=== PATIENT | male | born 1980 | race Caucasian/White ===

== ENCOUNTER → 2016-11-06 | Outpatient (CLI) | payer OTHER ==
--- NOTE | 2016-11-06 17:10 | DIAGNOSTIC IMAGING REPORT ---
LEFT HIP UNILATERAL 2 VIEWS, RIGHT HIP UNILATERAL 2 VIEWS CLINICAL HISTORY: M25.551 Pain of both hip [id number] COMPARISON STUDY: None. FINDINGS: No fracture or dislocation within the right or left hips. Cartilage spaces within the bilateral hips are maintained. Soft tissues are unremarkable. There is mild erosive change and sclerosis within the bilateral sacroiliac joints. The sacrum is intact. IMPRESSION: 1. Normal bilateral hips. 2. Slight erosive change and sclerosis within the bilateral sacroiliac joints consistent with a bilateral sacroiliitis. This can be seen in the setting of inflammatory bowel disease or less likely psoriasis. Electronically signed by: Shar Raymond M.D. 11/06/2016 5:09 PM Dictated Date/Time: 11/06/2016 5:06 PM
--- NOTE | 2016-11-06 17:10 | DIAGNOSTIC IMAGING REPORT ---
LEFT HIP UNILATERAL 2 VIEWS, RIGHT HIP UNILATERAL 2 VIEWS CLINICAL HISTORY: M25.551 Pain of both hip [id number] COMPARISON STUDY: None. FINDINGS: No fracture or dislocation within the right or left hips. Cartilage spaces within the bilateral hips are maintained. Soft tissues are unremarkable. There is mild erosive change and sclerosis within the bilateral sacroiliac joints. The sacrum is intact. IMPRESSION: 1. Normal bilateral hips. 2. Slight erosive change and sclerosis within the bilateral sacroiliac joints consistent with a bilateral sacroiliitis. This can be seen in the setting of inflammatory bowel disease or less likely psoriasis. Electronically signed by: Shar Raymond M.D. 11/06/2016 5:09 PM Dictated Date/Time: 11/06/2016 5:06 PM
--- NOTE | 2016-11-06 17:13 | DIAGNOSTIC IMAGING REPORT ---
THORACIC SPINE 3 VIEWS HISTORY: M54.6 Thoracic back [id number] COMPARISON: None. FINDINGS: There is no fracture. No subluxation. Disc spaces are preserved. Paraspinal soft tissues are unremarkable. IMPRESSION: Unremarkable thoracic spine by conventional radiographic technique. Electronically signed by: Shar Raymond M.D. 11/06/2016 5:11 PM Dictated Date/Time: 11/06/2016 5:10 PM
--- NOTE | 2016-11-06 17:14 | DIAGNOSTIC IMAGING REPORT ---
LUMBAR SPINE 5 VIEWS HISTORY: M54.5 Low back [id number] COMPARISON: None. FINDINGS: There is no fracture. No subluxation. Disc spaces are preserved. Mild erosive change and sclerosis within the bilateral sacroiliac joints. The sacrum appears intact. Alignment remains intact through both flexion and extension. IMPRESSION: Unremarkable lumbar spine by conventional measurement radiographic technique. Suspect bilateral sacroiliitis. Electronically signed by: Shar Raymond M.D. 11/06/2016 5:13 PM Dictated Date/Time: 11/06/2016 5:12 PM
== END | disposition home or self-care (01) ==
LOC: C.RAD1850 16:31
PROVIDERS: ATTEND Internal Medicine
DX: M25.551 Pain in right hip (principal); M25.552 Pain in left hip; M54.6 Pain in thoracic spine; M54.5 Low back pain; M53.3 Sacrococcygeal disorders, not elsewhere classified

== ENCOUNTER → 2016-11-07 | Outpatient (CLI) | payer OTHER ==
[2016-11-07 13:38] LABS: HEMATOCRIT 41.6 % (42-52); MEAN CELL VOLUME 87.8 fL (80-100); MEAN CORPUSCULAR HEMOGLOBIN 30.8 pg (25-34); MEAN CORPUSCULAR HGB CONC 35.1 g/dl (32-36); MEAN PLATELET VOLUME 9.3 fL (7.4-10.4); PLATELET COUNT 343 K/uL (130-400); RED BLOOD COUNT 4.74 M/uL (4.7-6.1); WHITE BLOOD COUNT 8.88 K/uL (4.8-10.8)
[2016-11-07 14:02] LABS: ALT/SGPT 25 U/L (12-78); BLOOD UREA NITROGEN 16 mg/dl (7-18); BUN/CREATININE RATIO 18.3 (10-20); CARBON DIOXIDE 26 mmol/L (21-32); CHLORIDE 106 mmol/L (98-107); CREATININE 0.89 mg/dl (0.60-1.40); GLUCOSE 80 mg/dl (70-99); POTASSIUM 3.9 mmol/L (3.5-5.1); SODIUM 139 mmol/L (136-145); URIC ACID 4.3 mg/dl (2.6-7.2)
[2016-11-07 14:06] LABS: ALB/GLOB RATIO 1.1 (0.9-2); ALKALINE PHOSPHATASE 93 U/L (45-117); AST/SGOT 12 U/L (15-37); C-REACTIVE PROTEIN 1.03 mg/dl (0-0.29); CHOLESTEROL 138 mg/dl (0-200); HDL CHOLESTEROL 46 mg/dl; LDL CHOLESTEROL CALCULATED 83 mg/dl; RHEUMATOID FACTOR < 10.0 U/mL (0-15); TRIGLYCERIDES 47 mg/dl (0-150); VERY LOW DENSITY LIPOPROT CALC 9 mg/dl
[2016-11-07 15:54] LABS: LYME DISEASE AB IGG NEG (NEG); LYME DISEASE AB IGM NEG (NEG)
[2016-11-10 20:21] LABS: HLA-B27** TC 528X POSITIVE (NEGATIVE)
== END | disposition home or self-care (01) ==
LOC: C.LAB 12:48
PROVIDERS: ATTEND Internal Medicine
DX: Z00.00 Encounter for general adult medical examination without abnormal findings (principal); G89.29 Other chronic pain; M54.6 Pain in thoracic spine; M54.5 Low back pain; M25.551 Pain in right hip

== ENCOUNTER → 2017-06-05 | Outpatient (CLI) | payer OTHER ==
[2017-06-05 16:34] LABS: BASO % 1.1 %; COMPLETE YES; EOS % 4.8 %; IG% 0.1 %; LYMPH % 40.8 %; LYMPH ABS # 3.74 K/uL (1.2-3.4); MEAN CELL VOLUME 88.9 fL (80-100); MEAN CORPUSCULAR HEMOGLOBIN 30.4 pg (25-34); MEAN CORPUSCULAR HGB CONC 34.1 g/dl (32-36); MEAN PLATELET VOLUME 9.4 fL (7.4-10.4); NEUT % 43.2 %; PLATELET COUNT 309 K/uL (130-400); RED BLOOD COUNT 4.61 M/uL (4.7-6.1); WHITE BLOOD COUNT 9.17 K/uL (4.8-10.8)
[2017-06-05 17:41] LABS: ALT/SGPT 22 U/L (12-78); CREATININE 0.93 mg/dl (0.60-1.40)
[2017-06-05 17:44] LABS: ALKALINE PHOSPHATASE 93 U/L (45-117); AST/SGOT 16 U/L (15-37)
== END | disposition home or self-care (01) ==
LOC: C.LAB1850 15:25
PROVIDERS: ATTEND Internal Medicine Rheumatology
DX: M25.551 Pain in right hip (principal)

== ENCOUNTER → 2017-12-19 | Outpatient (CLI) | payer OTHER ==
--- NOTE | 2017-12-19 12:02 | DIAGNOSTIC IMAGING REPORT ---
CERVICAL SPINE 5 VIEWS HISTORY: M54.2 Cervical pain (neck)[id number] COMPARISON: None. FINDINGS: The cervical spine is visualized from C1 through the superior endplate of T1. There is no fracture. No subluxation. Disc spaces are preserved. Prevertebral soft tissues and the atlantodens interval are intact. The bilateral neural foramina are widely patent. IMPRESSION: Normal cervical spine by conventional radiographic technique. Electronically signed by: Shar Raymond M.D. 12/19/2017 12:01 PM Dictated Date/Time: 12/19/2017 11:57 AM
[2017-12-19 12:24] LABS: BASO % 1.5 %; BASO ABS # 0.11 K/uL (0-0.2); EOS % 8.8 %; EOS ABS # 0.63 K/uL (0-0.5); HEMATOCRIT 42.4 % (42-52); HEMOGLOBIN 14.4 g/dL (14.0-18.0); IG# 0.02 K/uL (0.00-0.02); LYMPH % 43.6 %; LYMPH ABS # 3.12 K/uL (1.2-3.4); MEAN CELL VOLUME 89.5 fL (80-100); MEAN CORPUSCULAR HEMOGLOBIN 30.4 pg (25-34); MEAN PLATELET VOLUME 9.3 fL (7.4-10.4); MONO % 8.8 %; MONO ABS # 0.63 K/uL (0.11-0.59); NEUT ABS # 2.65 K/uL (1.4-6.5); PLATELET COUNT 305 K/uL (130-400); RED CELL DISTRIBUTION WIDTH CV 13.3 % (11.5-14.5); RED CELL DISTRIBUTION WIDTH SD 43.7 fL (36.4-46.3); WHITE BLOOD COUNT 7.16 K/uL (4.8-10.8)
[2017-12-19 15:54] LABS: ALBUMIN 4.1 gm/dl (3.4-5.0); ALT/SGPT 29 U/L (12-78); AST/SGOT 12 U/L (15-37); CREATININE 0.93 mg/dl (0.60-1.40)
[2017-12-19 15:57] LABS: ALKALINE PHOSPHATASE 73 U/L (45-117); TOTAL PROTEIN 7.6 gm/dl (6.4-8.2)
== END | disposition home or self-care (01) ==
LOC: C.RAD1850 11:32
PROVIDERS: ATTEND Internal Medicine Rheumatology
DX: M54.2 Cervicalgia (principal); M46.1 Sacroiliitis, not elsewhere classified; Z79.899 Other long term (current) drug therapy; M45.9 Ankylosing spondylitis of unspecified sites in spine; Z79.1 Long term (current) use of non-steroidal anti-inflammatories (NSAID)

== ENCOUNTER → 2017-12-24 | Outpatient (CLI) | payer OTHER ==
--- NOTE | 2017-12-24 20:55 | DIAGNOSTIC IMAGING REPORT ---
CERVICAL WITHOUT CONTRAST HISTORY: Pain. Neuropathy. Ankylosing spondylitis. M54.2 Cervical pain (neck)[id number] TECHNIQUE: Multiplanar multisequence MRI of the cervical spine was performed without the use of contrast. COMPARISON STUDY: None. FINDINGS: Normal signal characteristics of the vertebral bodies. Unremarkable signal characteristics of the intervertebral discs. Posterior bulging discs based on the sagittal images C5-C6. Normal signal characteristics of the cervical cord. C2-C3: No significant central canal or neural foraminal narrowing. C3-C4: No significant central canal or neural foraminal narrowing. C4-C5: No significant central canal or neural foraminal narrowing. C5-C6: Mild broad-based disc herniation. Mild impact upon the anterior cervical cord. Neuroforamina are patent bilaterally. C6-C7: No significant central canal or neural foraminal narrowing. C7-T1: No significant central canal or neural foraminal narrowing. IMPRESSION: 1. Mild broad-based disc herniation C5-C6 creating mild impact upon the anterior cervical cord. 2. All remaining levels are unremarkable. 3. All neural foramina are patent bilaterally. 4. Normal signal characteristics of the cervical cord. The above report was generated using voice recognition software. It may contain grammatical, syntax or spelling errors. Electronically signed by: Parker Tran M.D. 12/24/2017 8:53 PM Dictated Date/Time: 12/24/2017 8:49 PM
== END | disposition home or self-care (01) ==
LOC: C.MRI 20:03
PROVIDERS: ATTEND Internal Medicine Rheumatology
DX: M50.20 Other cervical disc displacement, unspecified cervical region (principal)

== ENCOUNTER → 2018-04-18 | Outpatient (CLI) | payer OTHER ==
[2018-04-18 12:10] LABS: BASO % 1.1 %; BASO ABS # 0.09 K/uL (0-0.2); EOS % 2.2 %; EOS ABS # 0.18 K/uL (0-0.5); HEMATOCRIT 43.5 % (42-52); HEMOGLOBIN 14.7 g/dL (14.0-18.0); LYMPH % 48.7 %; LYMPH ABS # 3.97 K/uL (1.2-3.4); MEAN CELL VOLUME 90.1 fL (80-100); MEAN CORPUSCULAR HEMOGLOBIN 30.4 pg (25-34); MEAN CORPUSCULAR HGB CONC 33.8 g/dl (32-36); MEAN PLATELET VOLUME 9.5 fL (7.4-10.4); MONO % 8.6 %; NEUT % 39.4 %; NEUT ABS # 3.21 K/uL (1.4-6.5); PLATELET COUNT 292 K/uL (130-400); RED CELL DISTRIBUTION WIDTH CV 13.5 % (11.5-14.5); RED CELL DISTRIBUTION WIDTH SD 44.1 fL (36.4-46.3); WHITE BLOOD COUNT 8.15 K/uL (4.8-10.8)
[2018-04-18 12:55] LABS: ALBUMIN 4.4 gm/dl (3.4-5.0); ALKALINE PHOSPHATASE 73 U/L (45-117); ALT/SGPT 27 U/L (12-78); AST/SGOT 13 U/L (15-37); CREATININE 0.96 mg/dl (0.60-1.40)
== END | disposition home or self-care (01) ==
LOC: C.LAB1850 11:11
PROVIDERS: ATTEND Internal Medicine Rheumatology
DX: M47.899 Other spondylosis, site unspecified (principal); Z79.899 Other long term (current) drug therapy; Z79.1 Long term (current) use of non-steroidal anti-inflammatories (NSAID)